=== PATIENT | male | born 1960 | race African-American/Black ===

== ENCOUNTER 2016-10-17 15:21 | Emergency (ER) | payer MEDICAID ==
[~2016-10-17] VITALS: Ht 167.6 cm; Wt 102.5 kg
[~2016-10-17 15:21] MED LIST: DOCU-15 PO; NAPR375T; VIC PO
[2016-10-17] MEDS ORDERED: KETOROLAC 60MG/2ML VIAL IM ONE (17:00)
[2016-10-17 18:49] VITALS: BP 121/78
== END 2016-10-17 18:52 | disposition home or self-care (01) ==
LOC: ER 15:21
DX: M62.830 Muscle spasm of back (principal); M54.2 Cervicalgia; F17.200 Nicotine dependence, unspecified, uncomplicated; Z98.890 Other specified postprocedural states
CPT/HCPCS: 96372; 99283; J1885; Z7610

== ENCOUNTER 2018-01-22 14:39 | Emergency (ER) | payer MEDICAID ==
[~2018-01-22] VITALS: Ht 172.7 cm; Wt 102.0 kg
[2018-01-22 14:47] VITALS: BP 130/71
[2018-01-22] MEDS ORDERED: LIDOCAINE HCL/PF 1% 2ML VIAL INFIL ONE (16:45)
[2018-01-22] MEDS ORDERED: LIDOCAINE HCL 1% 20ML VIAL (Pyxis) INJ ONE (16:53)
== END 2018-01-22 17:46 | disposition home or self-care (01) ==
LOC: ER 14:54
DX: S90.851A Superficial foreign body, right foot, initial encounter (principal); Z79.899 Other long term (current) drug therapy; Z98.890 Other specified postprocedural states; W22.8XXA Striking against or struck by other objects, initial encounter; Y93.89 Activity, other specified; Y92.89 Other specified places as the place of occurrence of the external cause; Y99.8 Other external cause status
CPT/HCPCS: 73620; 99284; J3490; 28190

== ENCOUNTER 2019-09-15 13:36 | Emergency (ER) | payer MEDICAID ==
[~2019-09-15] VITALS: Ht 167.6 cm; Wt 97.0 kg
[2019-09-15] MEDS ORDERED: HYDROCODONE/ACETAMINOPHEN 5/325MG TABLET PO ONE (15:45)
[2019-09-15 16:01] VITALS: BP 137/81
== END 2019-09-15 16:18 | disposition home or self-care (01) ==
LOC: ER 13:36
DX: M54.5 Low back pain (principal); G89.29 Other chronic pain; Z76.0 Encounter for issue of repeat prescription; M19.90 Unspecified osteoarthritis, unspecified site; Z98.890 Other specified postprocedural states
CPT/HCPCS: 99283

== ENCOUNTER 2022-11-10 10:52 | Emergency (ER) | payer MEDICAID ==
[~2022-11-10] VITALS: Ht 167.6 cm; Wt 105.0 kg
[2022-11-10 11:02] VITALS: BP 141/80; PULSE 75; RESP 16; TEMP 98.6; O2SAT 100
[2022-11-10 13:04] LABS: CLARITY URINE CLOUDY (CLEAR); COLOR URINE YELLOW (YELLOW); GLUCOSE URINE NEGATIVE (NEGATIVE); KETONES URINE TRACE (NEGATIVE); LEUKOCYTE ESTERASE URINE 1+ (NEGATIVE); NITRITE URINE NEGATIVE (NEGATIVE); OCCULT BLOOD URINE TRACE (NEGATIVE); PH URINE 5.5 (4.5-8.0); PROTEIN URINE NEGATIVE (NEGATIVE); SPECIFIC GRAVITY URINE 1.027 (1.005-1.030)
[2022-11-10 13:26] LABS: BACTERIA URINE FEW; CALCIUM OXALATE CRYSTALS URINE 1+ /lpf; RBC URINE NONE SEEN /hpf (0-2); SQUAMOUS EPITHELIAL CELL URINE NONE SEEN /lpf (RARE/1+); YEAST URINE NONE SEEN
== END 2022-11-10 15:24 | disposition home or self-care (01) ==
LOC: ER 10:52
DX: R33.9 Retention of urine, unspecified (principal); M19.90 Unspecified osteoarthritis, unspecified site; Z98.890 Other specified postprocedural states
CPT/HCPCS: 81003; 99283

== ENCOUNTER 2023-01-07 23:51 | Emergency (ER) | payer MEDICAID ==
[~2023-01-07] VITALS: Ht 167.6 cm; Wt 105.2 kg
[2023-01-08 00:09] VITALS: O2SAT 96
[2023-01-08] MEDS ORDERED: ONDANSETRON 4MG ODT PO ONE (01:00)
[2023-01-08] MEDS ORDERED: TAMS-11 MT (04:32)
[2023-01-08 04:45] LABS: CLARITY URINE CLEAR (CLEAR); COLOR URINE YELLOW (YELLOW); GLUCOSE URINE NEGATIVE (NEGATIVE); KETONES URINE 1+ (NEGATIVE); LEUKOCYTE ESTERASE URINE NEGATIVE (NEGATIVE); NITRITE URINE NEGATIVE (NEGATIVE); OCCULT BLOOD URINE 1+ (NEGATIVE); PH URINE 5.5 (4.5-8.0); PROTEIN URINE NEGATIVE (NEGATIVE); UROBILINOGEN URINE 0.2 E.U./dL (0.2-1.0)
[2023-01-08 04:47] LABS: BACTERIA URINE TRACE; RBC URINE 0-2 /hpf (0-2); SQUAMOUS EPITHELIAL CELL URINE NONE SEEN /lpf (RARE/1+); WBC URINE NONE SEEN /hpf (0-2)
[2023-01-08 06:41] VITALS: BP 134/81; PULSE 96; RESP 18; TEMP 99.3
== END 2023-01-08 06:47 | disposition home or self-care (01) ==
LOC: ER 23:51
DX: R33.9 Retention of urine, unspecified (principal); M19.90 Unspecified osteoarthritis, unspecified site; Z98.890 Other specified postprocedural states
CPT/HCPCS: 99284; 51702; 81003; 87086; Q0162; 99283

== ENCOUNTER 2023-01-15 21:02 | Emergency (ER) | payer BC, MEDICAID ==
[~2023-01-15] VITALS: Ht 167.6 cm; Wt 105.5 kg
[~2023-01-15 21:02] MED LIST changes: +TAMS-11 MT
[2023-01-15 21:18] VITALS: BP 169/118; PULSE 103; RESP 18; TEMP 97.5; O2SAT 99
[2023-01-15 22:07] LABS: CLARITY URINE TURBID (CLEAR); COLOR URINE YELLOW (YELLOW); GLUCOSE URINE NEGATIVE (NEGATIVE); KETONES URINE NEGATIVE (NEGATIVE); LEUKOCYTE ESTERASE URINE 3+ (NEGATIVE); NITRITE URINE POSITIVE (NEGATIVE); OCCULT BLOOD URINE 3+ (NEGATIVE); PROTEIN URINE 1+ (NEGATIVE); SPECIFIC GRAVITY URINE 1.015 (1.005-1.030); UROBILINOGEN URINE 0.2 E.U./dL (0.2-1.0)
[2023-01-15] MEDS ORDERED: SULF1TAB48 MT (22:29)
[2023-01-15 22:44] LABS: BACTERIA URINE 2+; SQUAMOUS EPITHELIAL CELL URINE 1+ /lpf (RARE/1+); WBC URINE TNTC /hpf (0-2)
== END 2023-01-15 22:50 | disposition home or self-care (01) ==
LOC: ER 21:02
DX: R33.9 Retention of urine, unspecified (principal); N39.0 Urinary tract infection, site not specified; Z98.890 Other specified postprocedural states
CPT/HCPCS: 81003; 87077; 87186; 99283

== ENCOUNTER 2023-02-11 11:27 | Emergency (ER) | payer BC, MEDICAID ==
[~2023-02-11] VITALS: Ht 167.6 cm; Wt 91.0 kg
[~2023-02-11 11:27] MED LIST changes: +SULF1TAB48 MT
[2023-02-11 11:54] VITALS: TEMP 98.8; O2SAT 98
[2023-02-11 13:23] LABS: BASOPHILS % 0.4 % (0.0-2.0); EOSINOPHILS % 0.5 % (0.0-5.0); HEMATOCRIT. 41.7 % (42.0-52.0); HEMOGLOBIN. 14.2 g/dL (14.0-18.0); LYMPHOCYTES % 24.5 % (20.0-50.0); MEAN CORPUSCULAR HEMOGLOBIN 31.8 pg (28.0-32.0); MEAN CORPUSCULAR VOLUME 93.5 fL (80.0-94.0); NEUTROPHILS % 66.6 % (40.0-76.0); PLATELET 204 x1000/uL (130-400); RED BLOOD CELL COUNT 4.46 mill/uL (4.7-6.1); RED CELL DISTRIBUTION WIDTH 14.3 % (11.6-14.6); WHITE BLOOD COUNT 6.4 x1000/uL (4.5-11.0)
[2023-02-11 13:48] LABS: ALANINE AMINOTRANSFERASE 11 IU/L (10-49); ALBUMIN 4.2 g/dL (3.2-4.8); ASPARTATE AMINOTRANSFERASE 11 IU/L (<34); BILIRUBIN TOTAL 0.6 mg/dL (0.1-1.0); CALCIUM 9.3 mg/dL (8.7-10.4); CARBON DIOXIDE 32 mEq/L (21-32); CHLORIDE 106 mEq/L (98-107); GLUCOSE 98 mg/dL (70-105); POTASSIUM 3.9 mEq/L (3.5-5.1); PROTEIN TOTAL 6.8 g/dL (6.0-8.3); SODIUM 140 mEq/L (136-145); UREA NITROGEN BLOOD 12 mg/dL (9-23)
[2023-02-11 18:23] LABS: CLARITY URINE CLOUDY (CLEAR); COLOR URINE RED (YELLOW); GLUCOSE URINE NEGATIVE (NEGATIVE); KETONES URINE NEGATIVE (NEGATIVE); LEUKOCYTE ESTERASE URINE 2+ (NEGATIVE); NITRITE URINE POSITIVE (NEGATIVE); OCCULT BLOOD URINE 3+ (NEGATIVE); PROTEIN URINE 3+ (NEGATIVE)
[2023-02-11] MEDS ORDERED: CEPHALEXIN 250MG CAPSULE PO NR (18:45)
[2023-02-11] MEDS ORDERED: CEPH500C2 MT (18:45)
[2023-02-11 18:49] LABS: BACTERIA URINE 1+; RBC URINE 25-50 /hpf (0-2); SQUAMOUS EPITHELIAL CELL URINE 1+ /lpf (RARE/1+)
[2023-02-11 19:16] VITALS: BP 116/89; PULSE 80; RESP 16
== END 2023-02-11 19:29 | disposition home or self-care (01) ==
LOC: ER 11:27
DX: T83.038A Leakage of other urinary catheter, initial encounter (principal)
CPT/HCPCS: 36415; 76770; 80053; 81003; 85025; 99284

== ENCOUNTER 2023-09-14 09:08 | Emergency (ER) | payer BC ==
[~2023-09-14] VITALS: Ht 167.6 cm; Wt 102.0 kg
[~2023-09-14 09:08] MED LIST changes: +CEPH500C2 MT
[2023-09-14 09:10] VITALS: TEMP 98.2; O2SAT 96
[2023-09-14 09:52] LABS: HEMATOCRIT 43.3 % (42.0-52.0); HEMOGLOBIN 14.6 g/dL (14.0-18.0); MEAN CORPUSCULAR HEMOGLOBIN 31.8 pg (28.0-32.0); MEAN CORPUSCULAR HGB CONC 33.8 g/dL (31.0-37.0); PLATELET 199 x1000/uL (130-400); RED BLOOD CELL COUNT 4.61 mill/uL (4.7-6.1); RED CELL DISTRIBUTION WIDTH 14.7 % (11.6-14.6)
[2023-09-14 10:02] LABS: CHLORIDE 105 mEq/L (98-107); POTASSIUM 3.5 mEq/L (3.5-5.1); SODIUM 138 mEq/L (136-145)
[2023-09-14 10:03] LABS: CARBON DIOXIDE 24 mEq/L (21-32)
[2023-09-14 10:04] LABS: CALCIUM 9.6 mg/dL (8.7-10.4)
[2023-09-14 10:08] LABS: CREATININE 0.9 mg/dL (0.6-1.3)
[2023-09-14 10:09] LABS: GLUCOSE 100 mg/dL (70-105); UREA NITROGEN BLOOD 7 mg/dL (9-23)
[2023-09-14 11:03] LABS: CLARITY URINE CLEAR (CLEAR); COLOR URINE YELLOW (YELLOW); GLUCOSE URINE NEGATIVE (NEGATIVE); KETONES URINE TRACE (NEGATIVE); LEUKOCYTE ESTERASE URINE NEGATIVE (NEGATIVE); NITRITE URINE NEGATIVE (NEGATIVE); OCCULT BLOOD URINE 2+ (NEGATIVE); PH URINE 6.5 (4.5-8.0); PROTEIN URINE NEGATIVE (NEGATIVE); UROBILINOGEN URINE 0.2 E.U./dL (0.2-1.0)
[2023-09-14 11:17] LABS: SQUAMOUS EPITHELIAL CELL URINE RARE /lpf (RARE/1+)
[2023-09-14 11:18] LABS: RBC URINE 15-25 /hpf (0-2); WBC URINE 0-2 /hpf (0-2)
[2023-09-14 11:19] LABS: BACTERIA URINE NONE SEEN; YEAST URINE NONE SEEN
[2023-09-14 11:33] VITALS: BP 140/82; PULSE 89; RESP 17
== END 2023-09-14 11:42 | disposition home or self-care (01) ==
LOC: ER 09:08
DX: R33.9 Retention of urine, unspecified (principal); Z85.46 Personal history of malignant neoplasm of prostate; Z98.890 Other specified postprocedural states
CPT/HCPCS: 36415; 51702; 80048; 81003; 85027; 99284

== ENCOUNTER 2024-01-18 09:13 | Emergency (ER) | payer BC, MEDICAID ==
[~2024-01-18] VITALS: Ht 167.6 cm; Wt 106.0 kg
[2024-01-18 09:20] VITALS: O2SAT 98
[2024-01-18 10:29] LABS: BASOPHILS % 0.2 % (0.0-2.0); HEMATOCRIT. 44.6 % (42.0-52.0); HEMOGLOBIN. 15.2 g/dL (14.0-18.0); LYMPHOCYTES % 12.1 % (20.0-50.0); MEAN CORPUSCULAR HEMOGLOBIN 31.9 pg (28.0-32.0); MEAN CORPUSCULAR HGB CONC 34.2 g/dL (31.0-37.0); MEAN CORPUSCULAR VOLUME 93.3 fL (80.0-94.0); MEAN PLATELET VOLUME 8.4 fl (7.4-10.4); MONOCYTES % 6.1 % (2.0-8.0); NEUTROPHILS % 81.6 % (40.0-76.0); PLATELET 204 x1000/uL (130-400); RED BLOOD CELL COUNT 4.78 mill/uL (4.7-6.1); RED CELL DISTRIBUTION WIDTH 15.9 % (11.6-14.6); WHITE BLOOD COUNT 6.9 x1000/uL (4.5-11.0)
[2024-01-18 10:45] LABS: CHLORIDE 103 mEq/L (98-107); POTASSIUM 4.1 mEq/L (3.5-5.1); SODIUM 135 mEq/L (136-145)
[2024-01-18 10:46] LABS: CALCIUM 10.2 mg/dL (8.7-10.4); CARBON DIOXIDE 19 mEq/L (21-32)
[2024-01-18 10:51] LABS: GLUCOSE 100 mg/dL (70-105); UREA NITROGEN BLOOD 10 mg/dL (9-23)
[2024-01-18 12:18] LABS: GLUCOSE URINE NEGATIVE (NEGATIVE)
[2024-01-18 12:50] LABS: CLARITY URINE CLOUDY (CLEAR); COLOR URINE BLOODY (YELLOW); PROTEIN URINE 3+ (NEGATIVE)
[2024-01-18 12:51] LABS: KETONES URINE 3+ (NEGATIVE)
[2024-01-18 12:52] LABS: LEUKOCYTE ESTERASE URINE 2+ (NEGATIVE); NITRITE URINE POSITIVE (NEGATIVE); OCCULT BLOOD URINE 3+ (NEGATIVE)
[2024-01-18 12:57] LABS: BACTERIA URINE 1+; RBC URINE TNTC /hpf (0-2); SQUAMOUS EPITHELIAL CELL URINE NONE SEEN /lpf (RARE/1+); WBC URINE 50-100 /hpf (0-2); YEAST URINE NONE SEEN
[2024-01-18] MEDS: CEFTRIAXONE 1GM/50ML 50 ML IV NR (15:30)
[2024-01-18] MEDS: CEPHALEXIN 250MG CAPSULE PO NR (15:30)
[2024-01-18] MEDS: CEFTRIAXONE SODIUM 1G VIAL IM ONE (16:58)
[2024-01-18] MEDS: SODIUM CHLORIDE 0.9% 1,000 ML IV ONE (16:59)
[2024-01-18] MEDS ORDERED: CEPH500T MT (17:19)
[2024-01-18 17:44] VITALS: BP 145/82; PULSE 90; RESP 16; TEMP 36.44736; O2SAT 98
[2024-01-27] MEDS ORDERED: NITR-87 MT (18:48)
[2024-01-27] MEDS ORDERED: TAMS-11 MT (18:48)
[2024-01-27] MEDS ORDERED: FINA5TAB11 MT (18:48)
== END 2024-01-18 17:45 | disposition home or self-care (01) ==
LOC: ER 09:13
DX: N39.0 Urinary tract infection, site not specified (principal); R33.9 Retention of urine, unspecified; Z85.46 Personal history of malignant neoplasm of prostate; Z98.890 Other specified postprocedural states
CPT/HCPCS: 99285; 76770; 80048; 81003; 85025; 87086; 36415; 51702; 96372; J0696

== ENCOUNTER 2024-02-13 15:45 | Emergency (ER) | payer MEDICAID ==
[~2024-02-13] VITALS: Ht 167.6 cm; Wt 105.6 kg
[~2024-02-13 15:45] MED LIST changes: -CEPH500C2 MT; +FINA5TAB11 MT; +NITR-87 MT; -SULF1TAB48 MT
[2024-02-13 16:14] VITALS: BP 148/99; PULSE 97; RESP 16; TEMP 98.4; O2SAT 98
[2024-02-13 19:47] LABS: BASOPHILS % 0.2 % (0.0-2.0); EOSINOPHILS % 0.1 % (0.0-5.0); HEMATOCRIT. 47.8 % (42.0-52.0); HEMOGLOBIN. 15.7 g/dL (14.0-18.0); MEAN CORPUSCULAR HEMOGLOBIN 31.2 pg (28.0-32.0); MEAN CORPUSCULAR HGB CONC 32.8 g/dL (31.0-37.0); MEAN CORPUSCULAR VOLUME 95.2 fL (80.0-94.0); MEAN PLATELET VOLUME 8.6 fl (7.4-10.4); NEUTROPHILS % 85.7 % (40.0-76.0); PLATELET 206 x1000/uL (130-400); RED BLOOD CELL COUNT 5.02 mill/uL (4.7-6.1); RED CELL DISTRIBUTION WIDTH 15.5 % (11.6-14.6); WHITE BLOOD COUNT 10.5 x1000/uL (4.5-11.0)
[2024-02-13 19:51] LABS: CHLORIDE 108 mEq/L (98-107); POTASSIUM 3.5 mEq/L (3.5-5.1); SODIUM 141 mEq/L (136-145)
[2024-02-13 19:52] LABS: CARBON DIOXIDE 22 mEq/L (21-32)
[2024-02-13 19:53] LABS: CALCIUM 9.7 mg/dL (8.7-10.4)
[2024-02-13 19:57] LABS: GLUCOSE 124 mg/dL (70-105); UREA NITROGEN BLOOD 7 mg/dL (9-23)
== END 2024-02-13 22:51 | disposition left against medical advice (07) ==
LOC: ER 15:45
DX: R33.9 Retention of urine, unspecified (principal); F19.90 Other psychoactive substance use, unspecified, uncomplicated; Z85.46 Personal history of malignant neoplasm of prostate; Z98.890 Other specified postprocedural states; Z79.899 Other long term (current) drug therapy
CPT/HCPCS: 36415; 51702; 80048; 85025; 99284

== ENCOUNTER 2024-03-09 23:28 | Emergency (ER) | payer MEDICAID ==
[~2024-03-09] VITALS: Ht 170.2 cm; Wt 106.0 kg
[2024-03-09 23:54] VITALS: BP 188/110; PULSE 92; RESP 20; TEMP 98.4; O2SAT 96
[2024-03-12] MEDS ORDERED: TAMS-11 MT (11:33)
== END 2024-03-10 02:31 | disposition home or self-care (01) ==
LOC: ER 23:28
DX: T83.018A Breakdown (mechanical) of other urinary catheter, initial encounter (principal); Z98.890 Other specified postprocedural states; Y92.89 Other specified places as the place of occurrence of the external cause
CPT/HCPCS: 51702; 99284

== ENCOUNTER 2024-03-24 10:30 | Emergency (ER) | payer MEDICAID ==
[~2024-03-24] VITALS: Ht 167.6 cm; Wt 104.0 kg
[2024-03-24 10:31] VITALS: O2SAT 98
[2024-03-24 10:40] VITALS: BP 135/96; PULSE 85; RESP 16; TEMP 36.8; O2SAT 96
[2024-03-24 14:58] LABS: CLARITY URINE CLOUDY (CLEAR); COLOR URINE YELLOW (YELLOW); GLUCOSE URINE NEGATIVE (NEGATIVE); KETONES URINE NEGATIVE (NEGATIVE); LEUKOCYTE ESTERASE URINE 1+ (NEGATIVE); NITRITE URINE NEGATIVE (NEGATIVE); OCCULT BLOOD URINE 3+ (NEGATIVE); PH URINE 5.5 (4.5-8.0); PROTEIN URINE 3+ (NEGATIVE); SPECIFIC GRAVITY URINE 1.024 (1.005-1.030); UROBILINOGEN URINE 0.2 E.U./dL (0.2-1.0)
[2024-03-24 15:17] LABS: BACTERIA URINE 1+; RBC URINE 25-50 /hpf (0-2); SQUAMOUS EPITHELIAL CELL URINE NONE SEEN /lpf (RARE/1+); WBC URINE 15-25 /hpf (0-2); YEAST URINE NONE SEEN
== END 2024-03-24 12:49 | disposition home or self-care (01) ==
LOC: ER 10:30
DX: Z46.6 Encounter for fitting and adjustment of urinary device (principal); N39.0 Urinary tract infection, site not specified
CPT/HCPCS: 51702; 81003; 99284

== ENCOUNTER 2024-04-16 09:50 | Emergency (ER) | payer MEDICAID ==
[~2024-04-16] VITALS: Ht 172.7 cm; Wt 100.0 kg
[2024-04-16 10:05] VITALS: O2SAT 100
[2024-04-16 12:05] VITALS: BP 125/80; PULSE 82; RESP 18; TEMP 36.4; O2SAT 99
[2024-04-16 12:44] LABS: CLARITY URINE CLEAR (CLEAR); COLOR URINE YELLOW (YELLOW); GLUCOSE URINE NEGATIVE (NEGATIVE); KETONES URINE TRACE (NEGATIVE); LEUKOCYTE ESTERASE URINE NEGATIVE (NEGATIVE); NITRITE URINE NEGATIVE (NEGATIVE); OCCULT BLOOD URINE 1+ (NEGATIVE); PH URINE 5.5 (4.5-8.0); PROTEIN URINE NEGATIVE (NEGATIVE); SPECIFIC GRAVITY URINE 1.011 (1.005-1.030); UROBILINOGEN URINE 0.2 E.U./dL (0.2-1.0)
[2024-04-16 13:33] LABS: MUCUS URINE TRACE /lpf (NONE/TRACE); SQUAMOUS EPITHELIAL CELL URINE NONE SEEN /lpf (RARE/1+)
[2024-04-16 13:34] LABS: WBC URINE 0-2 /hpf (0-2)
[2024-04-16 13:35] LABS: BACTERIA URINE NONE SEEN
== END 2024-04-16 12:08 | disposition home or self-care (01) ==
LOC: ER 09:50
DX: R33.9 Retention of urine, unspecified (principal); Z79.899 Other long term (current) drug therapy; Z85.46 Personal history of malignant neoplasm of prostate
CPT/HCPCS: 51702; 81003; 99284

== ENCOUNTER 2024-04-28 10:07 | Emergency (ER) | payer MEDICAID ==
[~2024-04-28] VITALS: Ht 167.6 cm; Wt 105.0 kg
[2024-04-28 10:14] VITALS: O2SAT 99
[2024-04-28 10:33] VITALS: BP 146/93; PULSE 94; RESP 18; TEMP 36.8; O2SAT 96
[2024-04-28 11:09] LABS: CLARITY URINE CLOUDY (CLEAR); COLOR URINE YELLOW (YELLOW); GLUCOSE URINE NEGATIVE (NEGATIVE); KETONES URINE NEGATIVE (NEGATIVE); LEUKOCYTE ESTERASE URINE 3+ (NEGATIVE); NITRITE URINE NEGATIVE (NEGATIVE); OCCULT BLOOD URINE 2+ (NEGATIVE); PROTEIN URINE 2+ (NEGATIVE); SPECIFIC GRAVITY URINE 1.019 (1.005-1.030)
[2024-04-28 11:50] LABS: SQUAMOUS EPITHELIAL CELL URINE RARE /lpf (RARE/1+)
[2024-04-28 11:51] LABS: BACTERIA URINE 3+; WBC URINE 25-50 /hpf (0-2); YEAST URINE NONE SEEN
[2024-04-28] MEDS ORDERED: CEFP200T14 MT (12:09)
== END 2024-04-28 12:28 | disposition home or self-care (01) ==
LOC: ER 10:07
DX: R33.9 Retention of urine, unspecified (principal); N39.0 Urinary tract infection, site not specified
CPT/HCPCS: 81003; 87086; 87186; 87077; 51702; 99284; Z7610

== ENCOUNTER 2024-05-16 11:55 | Emergency (ER) | payer MEDICAID ==
[~2024-05-16] VITALS: Ht 175.3 cm; Wt 100.0 kg
[~2024-05-16 11:55] MED LIST changes: +CEFP200T14 MT
[2024-05-16 12:07] VITALS: O2SAT 99
[2024-05-16 12:22] VITALS: BP 121/81; PULSE 98; RESP 18; TEMP 37.1; O2SAT 98
== END 2024-05-16 13:27 | disposition home or self-care (01) ==
LOC: ER 11:55
DX: Z46.6 Encounter for fitting and adjustment of urinary device (principal); Z79.899 Other long term (current) drug therapy
CPT/HCPCS: 51702; 99284; Z7610

== ENCOUNTER 2024-06-13 10:31 | Emergency (ER) | payer MEDICAID ==
[~2024-06-13] VITALS: Ht 167.6 cm; Wt 105.0 kg
[~2024-06-13 10:31] MED LIST changes: -TAMS-11 MT; +TAMS-54 MT
[2024-06-13 10:35] VITALS: O2SAT 99
[2024-06-13 10:45] VITALS: BP 132/88; PULSE 85; RESP 16; TEMP 36.8; O2SAT 97
== END 2024-06-13 12:47 | disposition home or self-care (01) ==
LOC: ER 10:31
DX: T83.098A Other mechanical complication of other urinary catheter, initial encounter (principal); X58.XXXA Exposure to other specified factors, initial encounter
CPT/HCPCS: 51702; 99284; Z7610

== ENCOUNTER 2024-06-15 03:01 | Emergency (ER) | payer MEDICAID ==
[~2024-06-15] VITALS: Ht 170.2 cm; Wt 105.0 kg
[2024-06-15 03:07] VITALS: O2SAT 98
[2024-06-15] MEDS: HYDROCODONE/ACETAMINOPHEN 10/325MG TABLET PO ONE (03:54)
[2024-06-15 07:15] LABS: CLARITY URINE CLEAR (CLEAR); COLOR URINE YELLOW (YELLOW); GLUCOSE URINE NEGATIVE (NEGATIVE); PROTEIN URINE NEGATIVE (NEGATIVE)
[2024-06-15 07:16] LABS: KETONES URINE 1+ (NEGATIVE); LEUKOCYTE ESTERASE URINE TRACE (NEGATIVE); NITRITE URINE NEGATIVE (NEGATIVE); OCCULT BLOOD URINE 2+ (NEGATIVE); UROBILINOGEN URINE 0.2 E.U./dL (0.2-1.0)
[2024-06-15 07:18] LABS: RBC URINE 25-50 /hpf (0-2); SQUAMOUS EPITHELIAL CELL URINE NONE SEEN /lpf (RARE/1+); WBC URINE 0-2 /hpf (0-2)
[2024-06-15 07:19] LABS: BACTERIA URINE TRACE
[2024-06-15] MEDS ORDERED: CIPR-263 MT (07:46)
[2024-06-15 08:13] VITALS: BP 140/95; PULSE 100; RESP 18; TEMP 37.1; O2SAT 98
== END 2024-06-15 08:12 | disposition home or self-care (01) ==
LOC: ER 03:01
DX: T83.098A Other mechanical complication of other urinary catheter, initial encounter (principal); N39.0 Urinary tract infection, site not specified; R30.9 Painful micturition, unspecified; Z79.899 Other long term (current) drug therapy; X58.XXXA Exposure to other specified factors, initial encounter; Y93.89 Activity, other specified; Y92.89 Other specified places as the place of occurrence of the external cause; Y99.8 Other external cause status
CPT/HCPCS: 51702; 81003; 99284

== ENCOUNTER 2024-07-06 07:50 | Emergency (ER) | payer MEDICAID ==
[~2024-07-06] VITALS: Ht 167.6 cm; Wt 105.0 kg
[~2024-07-06 07:50] MED LIST changes: +CIPR-263 MT
[2024-07-06 08:05] VITALS: O2SAT 97
[2024-07-06 09:16] VITALS: BP 120/85; PULSE 78; RESP 20; TEMP 36.8; O2SAT 97
== END 2024-07-06 09:22 | disposition home or self-care (01) ==
LOC: ER 07:50
DX: T83.9XXA Unspecified complication of genitourinary prosthetic device, implant and graft, initial encounter (principal)
CPT/HCPCS: 51702; 99284

== ENCOUNTER 2024-07-31 07:25 | Emergency (ER) | payer MEDICAID ==
[~2024-07-31] VITALS: Ht 167.6 cm; Wt 105.0 kg
[2024-07-31 07:28] VITALS: O2SAT 98
[2024-07-31 07:58] VITALS: BP 132/87; PULSE 81; RESP 16; TEMP 36.8; O2SAT 98
[2024-07-31 10:46] LABS: CLARITY URINE CLEAR (CLEAR); COLOR URINE YELLOW (YELLOW); GLUCOSE URINE NEGATIVE (NEGATIVE); KETONES URINE NEGATIVE (NEGATIVE); LEUKOCYTE ESTERASE URINE 2+ (NEGATIVE); NITRITE URINE NEGATIVE (NEGATIVE); OCCULT BLOOD URINE 2+ (NEGATIVE); PH URINE 6.5 (4.5-8.0); PROTEIN URINE 2+ (NEGATIVE); SPECIFIC GRAVITY URINE 1.021 (1.005-1.030)
[2024-07-31 11:05] LABS: BACTERIA URINE TRACE; RBC URINE 15-25 /hpf (0-2); SQUAMOUS EPITHELIAL CELL URINE RARE /lpf (RARE/1+); WBC URINE 15-25 /hpf (0-2); YEAST URINE NONE SEEN
[2024-07-31] MEDS ORDERED: CEFP200T13 MT (11:09)
== END 2024-07-31 11:16 | disposition home or self-care (01) ==
LOC: ER 07:25
DX: N39.0 Urinary tract infection, site not specified (principal); N40.0 Benign prostatic hyperplasia without lower urinary tract symptoms; Z79.899 Other long term (current) drug therapy
CPT/HCPCS: 81003; 87106; 87086; 51702; 99284; Z7610 ×2

== ENCOUNTER 2024-08-29 11:30 | Emergency (ER) | payer MEDICAID ==
[~2024-08-29] VITALS: Ht 167.6 cm; Wt 106.0 kg
[~2024-08-29 11:30] MED LIST changes: +CEFP200T13 MT
[2024-08-29 11:36] VITALS: O2SAT 98
[2024-08-29 12:15] LABS: BASOPHILS % 0.7 % (0.0-2.0); EOSINOPHILS % 0.9 % (0.0-5.0); HEMATOCRIT. 43.2 % (42.0-52.0); HEMOGLOBIN. 14.7 g/dL (14.0-18.0); LYMPHOCYTES % 34.6 % (20.0-50.0); MEAN PLATELET VOLUME 8.2 fl (7.4-10.4); MONOCYTES % 5.6 % (2.0-8.0); NEUTROPHILS % 58.2 % (40.0-76.0); PLATELET 190 x1000/uL (130-400); RED BLOOD CELL COUNT 4.77 mill/uL (4.7-6.1); RED CELL DISTRIBUTION WIDTH 15.5 % (11.6-14.6)
[2024-08-29 12:40] LABS: CREATININE 1.1 mg/dL (0.6-1.3); UREA NITROGEN BLOOD 9 mg/dL (9-23)
[2024-08-29] MEDS ORDERED: FINA5TAB11 MT (16:36)
[2024-08-29] MEDS ORDERED: TAMS-54 MT (16:36)
[2024-08-29 18:00] VITALS: BP 130/84; PULSE 82; RESP 18; TEMP 36.9; O2SAT 98
== END 2024-08-29 18:01 | disposition home or self-care (01) ==
LOC: ER 11:30
DX: R33.8 Other retention of urine (principal); N40.1 Benign prostatic hyperplasia with lower urinary tract symptoms; R10.2 Pelvic and perineal pain; Z79.899 Other long term (current) drug therapy
CPT/HCPCS: 36415; 51702; 80048; 85025; 99283; 99284

== ENCOUNTER 2024-09-24 10:31 | Emergency (ER) | payer MEDICAID ==
[~2024-09-24] VITALS: Ht 167.6 cm; Wt 104.0 kg
[2024-09-24 10:42] VITALS: O2SAT 97
[2024-09-24 13:59] LABS: CLARITY URINE CLOUDY (CLEAR); COLOR URINE ORANGE (YELLOW); GLUCOSE URINE NEGATIVE (NEGATIVE); KETONES URINE NEGATIVE (NEGATIVE); LEUKOCYTE ESTERASE URINE 2+ (NEGATIVE); NITRITE URINE NEGATIVE (NEGATIVE); OCCULT BLOOD URINE 3+ (NEGATIVE); PH URINE 6.5 (4.5-8.0); PROTEIN URINE 3+ (NEGATIVE); SPECIFIC GRAVITY URINE 1.016 (1.005-1.030); UROBILINOGEN URINE 0.2 E.U./dL (0.2-1.0)
[2024-09-24 14:09] LABS: BACTERIA URINE 2+; RBC URINE TNTC /hpf (0-2); WBC URINE 25-50 /hpf (0-2); YEAST URINE NONE SEEN
[2024-09-24 14:10] LABS: SQUAMOUS EPITHELIAL CELL URINE 1+ /lpf (RARE/1+)
[2024-09-24] MEDS ORDERED: CIPR-263 MT (14:22)
[2024-09-24 14:48] VITALS: BP 125/85; PULSE 71; RESP 16; TEMP 36.8; O2SAT 97
== END 2024-09-24 14:51 | disposition home or self-care (01) ==
LOC: ER 10:31
DX: T83.9XXA Unspecified complication of genitourinary prosthetic device, implant and graft, initial encounter (principal); N39.0 Urinary tract infection, site not specified; R33.8 Other retention of urine; N40.1 Benign prostatic hyperplasia with lower urinary tract symptoms; Y92.89 Other specified places as the place of occurrence of the external cause
CPT/HCPCS: 51702; 81003; 87077; 87186; 99284

== ENCOUNTER 2024-10-30 08:31 | Emergency (ER) | payer MEDICAID ==
[~2024-10-30] VITALS: Ht 167.6 cm; Wt 106.0 kg
[2024-10-30 08:34] VITALS: PULSE 100; RESP 18; O2SAT 96
[2024-10-30 08:54] VITALS: BP 135/93; TEMP 36.9; O2SAT 95
== END 2024-10-30 10:09 | disposition home or self-care (01) ==
LOC: ER 08:31
DX: R33.9 Retention of urine, unspecified (principal); Z46.6 Encounter for fitting and adjustment of urinary device
CPT/HCPCS: 51702; 99284